=== PATIENT | female | born 1945 | race Caucasian/White ===

== ENCOUNTER 2022-01-01 13:13 | Emergency (ER) | payer MEDICARE, OTHER ==
[2022-01-01] MEDS ORDERED: Sodium Chloride 0.9% 10 ML Syringe FLUSH PRN (14:58)
[2022-01-01 15:30] LABS: ESTIMATED GFR 47 mL/min (>60)
== END 2022-01-01 17:02 | disposition home or self-care (01) ==
LOC: JP.ED 13:13
DX: S90.31XA Contusion of right foot, initial encounter (principal); R10.31 Right lower quadrant pain; Z79.899 Other long term (current) drug therapy; Z87.891 Personal history of nicotine dependence; X58.XXXA Exposure to other specified factors, initial encounter
CPT/HCPCS: 36415; 74176; 80053; 81001; 85025; 99283; 99284

== ENCOUNTER 2022-04-14 06:26 | Day surgery (SDC) | payer MEDICARE, OTHER ==
[2022-04-14] MEDS ORDERED: Propofol 200 MG/20 ML SDV ONE (07:31)
[2022-04-14] MEDS ORDERED: Dexamethasone 4 MG/ML SDV ONE (07:31)
[2022-04-14] MEDS ORDERED: Neostigmine Methylsulfate 1 MG/ML 5 ML Syringe ONE (07:31)
[2022-04-14] MEDS ORDERED: Rocuronium 50 MG/5 ML Vial ONE (07:31)
[2022-04-14] MEDS ORDERED: Succinylcholine 200 MG/10 ML MDV ONE (07:31)
[2022-04-14] MEDS ORDERED: Ondansetron 4 MG/2 ML SDV ONE (07:31)
[2022-04-14] MEDS ORDERED: Glycopyrrolate 0.2 MG/ML 5 ML MDV ONE (07:31)
[2022-04-14] MEDS ORDERED: fentaNYL 250 MCG/5 ML SDV ONE ×2 (07:32→09:32)
[2022-04-14] MEDS ORDERED: Lactated Ringers 1,000 ML IV SCH (07:45)
[2022-04-14] MEDS ORDERED: ceFAZolin 2 GM in Sodium Chloride 0.9% 50 ML IV ONE (08:15)
[2022-04-14] MEDS ORDERED: Bupivacaine 0.5% 30 ML SDV ONE (08:20)
[2022-04-14] MEDS ORDERED: Nozin Nasal Sanitizer NASBOTH SCH (09:00)
[2022-04-14] MEDS ORDERED: Lactated Ringers 1,000 ML ONE (10:08)
[2022-04-14] MEDS ORDERED: Acetaminophen/oxyCODONE 325-5 MG Tab PO PRN ×2 (10:23)
[2022-04-14] MEDS ORDERED: traMADol 50 MG Tab PO PRN (10:23)
[2022-04-14] MEDS ORDERED: Morphine 2 MG/ML SYRINGE IVPUSH PRN (10:23)
[2022-04-14] MEDS ORDERED: Albuterol 90 MCG/6.7 GM Inhaler INH PRN (10:41)
[2022-04-14] MEDS ORDERED: Loratadine 10 MG Tab PO PRN (10:42)
[2022-04-14] MEDS ORDERED: oxyCODONE 5 MG Tab PO PRN (11:00)
[2022-04-14] MEDS: oxyCODONE 5 MG Tab PO PRN ×2 (12:08→21:22)
[2022-04-14] MEDS: Ondansetron 4 MG/2 ML SDV IVPUSH PRN ×2 (12:09→18:33)
[2022-04-14] MEDS: Acetaminophen 325 MG Tab PO SCH ×3 (14:34→21:22)
[2022-04-14] MEDS ORDERED: Benzocaine/Cetylpyridinium/Menthol Lozenge MUCMEM PRN (15:22)
[2022-04-14] MEDS: ceFAZolin 1 GM in Premix Bag 1 BAG IV SCH ×2 (16:28→23:44)
[2022-04-14] MEDS: Sodium Chloride 0.9% 1,000 ML IV SCH (19:59)
[2022-04-14] MEDS: Docusate Sodium 100 MG Cap PO SCH (20:00)
[2022-04-14] MEDS: Aspirin 325 MG Tab.EC PO SCH (20:00)
[2022-04-14] MEDS: Nozin Nasal Sanitizer NASBOTH SCH (20:00)
[2022-04-14] MEDS ORDERED: atorvaSTATin 10 MG Tab PO SCH (21:00)
[2022-04-15] MEDS: Acetaminophen 325 MG Tab PO SCH ×4 (02:14→14:08)
[2022-04-15] MEDS: Sodium Chloride 0.9% 1,000 ML IV SCH (04:57)
[2022-04-15] MEDS ORDERED: Metoprolol Succinate 25 MG Tab.ER PO SCH (09:00)
[2022-04-15] MEDS: Nozin Nasal Sanitizer NASBOTH SCH (09:01)
[2022-04-15] MEDS: Docusate Sodium 100 MG Cap PO SCH (09:02)
[2022-04-15] MEDS: Aspirin 325 MG Tab.EC PO SCH (09:03)
== END 2022-04-15 14:15 | disposition home health service (06) ==
LOC: JP.SDS 06:26 → JP.MS 10:23 → JP.SDS 04-15 14:15
PROVIDERS: ATTEND Specialist
DX: M17.11 Unilateral primary osteoarthritis, right knee (principal); I12.9 Hypertensive chronic kidney disease with stage 1 through stage 4 chronic kidney disease, or unspecified chronic kidney disease; N18.30 Chronic kidney disease, stage 3 unspecified; I25.10 Atherosclerotic heart disease of native coronary artery without angina pectoris; J44.9 Chronic obstructive pulmonary disease, unspecified; E78.00 Pure hypercholesterolemia, unspecified; E66.9 Obesity, unspecified; E21.3 Hyperparathyroidism, unspecified; Z96.651 Presence of right artificial knee joint; Z79.899 Other long term (current) drug therapy; Z79.82 Long term (current) use of aspirin; Z98.890 Other specified postprocedural states; Z91.048 Other nonmedicinal substance allergy status; Z87.891 Personal history of nicotine dependence; Z85.118 Personal history of other malignant neoplasm of bronchus and lung; Z68.33 Body mass index [BMI] 33.0-33.9, adult
CPT/HCPCS: 27446; 73560; 97110; 97116; 97161; 97165; 97530; 97535; A9270; C1713; C1776; J0330; J0690; J1100; J2270; J2405; J2704; J2710; J3010; J3490; J7030; J7120

== ENCOUNTER 2023-11-14 09:54 | Observation (INO) | payer MEDICARE, OTHER ==
[2023-11-14 10:11] LABS: BASOPHILS ABSOLUTE AUTO 0.04 K/uL (0.00-0.10); BASOPHILS PERCENT AUTO 0.6 % (0.1-1.3); EOSINOPHILS PERCENT AUTO 1.5 % (0.0-5.4); HEMATOCRIT 40.4 % (34.3-46.0); HEMOGLOBIN 13.6 g/dL (11.2-15.5); IMMATURE GRAN PERCENT AUTO 0.3 % (0.0-0.7); LYMPHOCYTES ABSOLUTE AUTO 2.81 K/uL (0.8-3.3); LYMPHOCYTES PERCENT AUTO 41.8 % (11.4-47.7); MEAN CORPUSCULAR HEMOGLOBIN 31.6 pg (31.6-35.5); MEAN CORPUSCULAR HGB CONC 33.7 g/dL (31.6-35.5); NEUTROPHILS ABSOLUTE AUTO 3.35 K/uL (1.0-7.6); NEUTROPHILS PERCENT AUTO 49.8 % (40.0-78.1); PLATELET COUNT,PLT 217 K/uL (130-375); WHITE BLOOD CELL COUNT,WBC 6.7 K/uL (3.2-11.0)
[2023-11-14 10:12] LABS: IMMATURE GRAN ABSOLUTE AUTO 0.02 K/uL (0.00-0.23)
[2023-11-14 10:32] LABS: A/G RATIO 0.8 (1.2-2.2); ALANINE AMINOTRANSFERASE,ALT 21 U/L (12-78); ALBUMIN 3.7 g/dL (3.4-5.0); ALKALINE PHOSPHATASE 73 U/L (46-116); ASPARTATE AMNIOTRANSFERASE,AST 20 U/L (15-37); BILIRUBIN TOTAL 0.4 mg/dL (0.2-1.0); BLOOD UREA NITROGEN,BUN 22 mg/dL (7-18); CALCIUM 9.4 mg/dL (8.5-10.1); CARBON DIOXIDE,CO2 28 mmol/L (21-32); CHLORIDE,CL 101 mmol/L (100-108); CREATININE 1.2 mg/dL (0.6-1.0); EST CRCL DRUG DOSING (CG) 31.05 mL/min; ESTIMATED GFR 47 mL/min (>60); GLUCOSE RANDOM 144 mg/dL (74-106); POTASSIUM,K 4.3 mmol/L (3.6-5.2); PROTEIN TOTAL,TP 8.2 g/dL (6.4-8.2); SODIUM,NA 137 mmol/L (140-148)
[2023-11-14 11:00] LABS: ANION GAP 12.3 mmol/L (5.0-14.0)
[2023-11-14] MEDS: Sodium Chloride 0.9% 100 ML IV SCH (11:41)
[2023-11-14] MEDS: Iopamidol 755 Mg/ML 100 ML Bottle IV SCH (11:41)
[2023-11-14 12:21] LABS: APPEARANCE,URINE SLIGHTLY CLOUDY (CLEAR); BILIRUBIN,URINE NEGATIVE (NEGATIVE); COLOR,URINE YELLOW (YELLOW); GLUCOSE,URINE NEGATIVE (NEGATIVE); KETONES,URINE NEGATIVE (NEGATIVE); LEUKOCYTE ESTERASE,URINE LARGE (NEGATIVE); NITRITE,URINE NEGATIVE (NEGATIVE); OCCULT BLOOD,URINE SMALL (NEGATIVE); PH,URINE 6.5 (5.0-8.0); PROTEIN,URINE NEGATIVE (NEGATIVE); UROBILINOGEN,URINE 0.2 EU/dL (0.2-1.0)
[2023-11-14 12:30] LABS: RBC,URINE 0-5 (0-5); WBC,URINE 20-30 (0-5)
[2023-11-14 12:31] LABS: AMORPHOUS SEDIMENT,URINE NOT SEEN; BACTERIA,URINE RARE; EPITHELIAL CELLS,URINE MODERATE; MUCUS,URINE NOT SEEN
[2023-11-14] MEDS: Sodium Chloride 0.9% 1,000 ML IV SCH (12:31)
[2023-11-14] MEDS: Clopidogrel 75 MG Tab PO ONE (13:41)
[2023-11-14] MEDS: Aspirin 81 MG Tab.EC PO ONE (13:41)
[2023-11-14] MEDS ORDERED: Ondansetron 4 MG/2 ML SDV IV PRN (15:52)
[2023-11-14] MEDS ORDERED: Sodium Chloride 0.9% 10 ML Syringe FLUSH PRN (15:52)
[2023-11-14] MEDS ORDERED: Polyethylene Glycol 3350 Powder 17 GM Packet PO PRN (15:52)
[2023-11-14] MEDS ORDERED: Clopidogrel 75 MG Tab PO SCH (15:52)
[2023-11-14] MEDS ORDERED: Albuterol 6.7 GM Inhaler INH PRN (15:52)
[2023-11-14] MEDS: Acetaminophen 325 MG Tab PO PRN (16:48)
[2023-11-14] MEDS: atorvaSTATin 10 MG Tab (PTOM) PO SCH (20:07)
[2023-11-14] MEDS: Metoprolol Succinate 25 MG Tab.ER (PTOM) PO SCH (20:07)
[2023-11-14] MEDS ORDERED: atorvaSTATin 20 MG Tab PO SCH (21:00)
[2023-11-15 05:35] LABS: HEMATOCRIT 37.7 % (34.3-46.0); HEMOGLOBIN 12.4 g/dL (11.2-15.5); MEAN CORPUSCULAR HEMOGLOBIN 30.8 pg (31.6-35.5); MEAN CORPUSCULAR HGB CONC 32.9 g/dL (31.6-35.5); MEAN CORPUSCULAR VOLUME 93.5 fL (81.4-99.0); RED BLOOD CELL COUNT 4.03 M/uL (3.77-5.24)
[2023-11-15 05:52] LABS: CALCIUM 9.3 mg/dL (8.5-10.1); CREATININE 1.1 mg/dL (0.6-1.0); EST CRCL DRUG DOSING (CG) 33.87 mL/min; POTASSIUM,K 4.5 mmol/L (3.6-5.2)
[2023-11-15 05:58] LABS: ANION GAP 13.5 mmol/L (5.0-14.0)
[2023-11-15] MEDS: Clopidogrel 75 MG Tab PO SCH (08:38)
[2023-11-15] MEDS: Aspirin 81 MG Tab.EC PO SCH (08:40)
[2023-11-15] MEDS ORDERED: Metoprolol Succinate 25 MG Tab.ER PO SCH (09:00)
== END 2023-11-15 13:00 | disposition home or self-care (01) ==
LOC: JP.ED 09:54 → JP.MS 14:51
PROVIDERS: ADMIT Hospitalist; ATTEND Hospitalist
DX: I63.9 Cerebral infarction, unspecified (principal); G45.9 Transient cerebral ischemic attack, unspecified; R26.2 Difficulty in walking, not elsewhere classified; R53.1 Weakness; I10 Essential (primary) hypertension; Z79.899 Other long term (current) drug therapy; Z79.82 Long term (current) use of aspirin
CPT/HCPCS: 36415; 70450; 70496; 70498; 80048; 80053; 81001; 85025; 85027; 93005; 93306; 97161; 97530; 99222; 99238; A9270; G0378; J3490; J7030; Q9967